=== PATIENT | male | born 1995 | race African-American/Black ===

== ENCOUNTER 2019-11-12 11:31 | Emergency (ER) | payer OTHER ==
[2019-11-12 12:14] LABS: ABS Basophils 0.1 10^3/ul (0-0.2); ABS Monocytes 0.5 10^3/ul (0-0.8); ABS Neutrophils 6.3 10^3/ul (1.5-7.7); Eosinophil % 0.5 %; Hematocrit 39 % (42-52); Hemoglobin 12.7 g/dL (14.0-18.0); Lymphocyte % 12.8 %; Mean Corpuscular HGB Conc 33 g/dL (31-36); Mean Corpuscular Hemoglobin 28 pg (27-31); Mean Corpuscular Volume 86 fL (80-94); Mean Platelet Volume 9.3 fL (7.4-10.4); Platelet Count 201 10^3/uL (150-450); Red Blood Count 4.56 10^6 /uL (4.18-5.48); Red Cell Distribution Width 13 % (10-15); White Blood Count 7.9 10^3/uL (3.5-10.8)
[2019-11-12 12:30] LABS: ALT 20 U/L (7-52); AST 33 U/L (13-39); Albumin 4.2 g/dL (3.2-5.2); Albumin/Globulin Ratio 1.5 (1-3); Alkaline Phosphatase 74 U/L (34-104); Anion Gap 5 mmol/L (2-11); BUN/Creatinine Ratio 15.2 (8-20); Blood Urea Nitrogen 14 mg/dL (6-24); CO2 Carbon Dioxide 27 mmol/L (22-32); Calcium 9.2 mg/dL (8.6-10.3); Chloride 104 mmol/L (101-111); EGFR African American 122.3 (>60); EGFR Non-African American 101.1 (>60); Globulin 2.8 g/dL (2-4); Glucose 85 mg/dL (70-100); Sodium 136 mmol/L (135-145)
[2019-11-12 12:35] LABS: Urine Appearance Cloudy; Urine Bilirubin Negative (Negative); Urine Blood Negative (Negative); Urine Color Yellow; Urine Glucose Negative (Negative); Urine Ketones Negative (Negative); Urine Nitrite Negative (Negative); Urine Protein Negative (Negative); Urine Specific Gravity 1.019 (1.010-1.030); Urine Urobilinogen Negative (Negative)
[2019-11-12] MEDS ORDERED: Iohexol 300* (CONTRAST) 10 ML SDV IV ONE (12:41)
[2019-11-12 12:43] LABS: Acetaminophen < 15 mcg/mL; Alcohol < 10 mg/dL (<10); Salicylate < 2.50 mg/dL (<30)
[2019-11-12 12:55] LABS: TSH (Thyroid Stimulating Horm) 1.42 mcIU/mL (0.34-5.60)
[2019-11-12 13:07] LABS: Urine Benzodiazepine Screen None Detected (None Detect); Urine Opiates Screen None Detected (None Detect)
[2019-11-12 13:08] LABS: HIV 4th Generation Nonreactive (Nonreactive)
--- NOTE | 2019-11-12 13:39 | ED ---
Complex/Multi-Sys Presentation - HPI Summary HPI Summary: Patient is a 24 y/o M presenting to [facility] with complaints of neck pain after he attempted to hang himself in his care home cell [employer]. Shelter security reports that the patient had tied a sweatshirt around a screen. Another individual walked past his cell and saw what the patient was doing. Patient jumped by the time care home staff had entered the room. It is estimated that the patient was hanging for 5-7 seconds before he was gotten down. On triage, pain is rated 4/10. Patient reports that he did not touch the floor. PMHx of depression and anxiety is noted. He reports previous attempt of suicide at age 7. PSHx denied. He reports some tobacco, alcohol, and marijuana usage. Home medications and allergies are reviewed. - History Of Current Complaint Chief Complaint: EDSuicidal Time Seen by Provider: 11/12/19 11:45 Hx Obtained From: Patient Onset/Duration: Still Present Timing: Constant Severity Currently: Moderate Location: Pain At: - neck Associated Signs And Symptoms: Positive: Other - positive - neck pain, SI - Allergies/Home Medications Allergies/Adverse Reactions: Allergies Allergy/AdvReac Type Severity Reaction Status Date / Time No Known Allergies Allergy Verified 11/12/19 11:42 PMH/Surg Hx/FS Hx/Imm Hx Endocrine/Hematology History: Denies: Hx Diabetes Cardiovascular History: Denies: Hx Hypertension History: Denies: Hx Renal Disease Psychiatric History: Reports: Hx Anxiety, Hx Depression Infectious Disease History: No Infectious Disease History: Denies: Traveled Outside the [place] in Last 30 Days - Family History Known Family History: Negative: Diabetes - Social History Alcohol Use: Rare Substance Use Type: Reports: Marijuana Smoking Status (MU): Light Every Day Tobacco Smoker Review of Systems Musculoskeletal: Other - positive - neck pain Psychological: Other - positive - SI All Other Systems Reviewed And Are Negative: Yes Physical Exam - Summary Physical Exam Summary: VITAL SIGNS: Reviewed. GENERAL: Patient is a well-developed and nourished male who is lying comfortable in the stretcher. Patient is not in any acute respiratory distress. HEAD AND FACE: No signs of trauma. No ecchymosis, hematomas or skull depressions. No sinus tenderness. EYES: PERRLA, EOMI x 2, No injected conjunctiva, no nystagmus. EARS: Hearing grossly intact. Ear canals and tympanic membranes are within normal limits. MOUTH: Oropharynx within normal limits. No muffled voice. NECK: Supple, trachea is midline, no adenopathy, no JVD, no carotid bruit, no c- spine tenderness, neck with full ROM. There are no abrasions, hematomas, or signs of choking noted. CHEST: Symmetric, no tenderness at palpation. LUNGS: Clear to auscultation bilaterally. No wheezing or crackles. CVS: Regular rate and rhythm, S1 and S2 present, no murmurs or gallops appreciated. ABDOMEN: Soft, non-tender. No signs of distention. No rebound, no guarding, and no masses palpated. Bowel sounds are normal. EXTREMITIES: FROM in all major joints, no edema, no cyanosis or clubbing. NEURO: Alert and oriented x 3. No acute neurological deficits. Speech is normal and follows commands. SKIN: Dry and warm. Triage Information Reviewed: Yes Vital Signs On Initial Exam: Initial Vitals Pulse BP Pulse Ox 59 129/71 96 11/12/19 11:32 11/12/19 11:32 11/12/19 11:32 Vital Signs Reviewed: Yes Procedures - Sedation Patient Received Moderate/Deep Sedation with Procedure: No Diagnostics - Vital Signs Vital Signs Temp Pulse Resp BP Pulse Ox 11/12/19 11:39 56 97 11/12/19 11:33 97.1 F 56 17 129/71 97 11/12/19 11:32 59 129/71 96 - Laboratory Lab Results: Lab Results 11/12/19 11/12/19 11/12/19 Range/Units 12:06 12:06 12:15 WBC 7.9 (3.5-10.8) 10^3/uL RBC 4.56 (4.18-5.48) 10^6 /uL Hgb 12.7 L (14.0-18.0) g/dL Hct 39 L (42-52) % MCV 86 (80-94) fL MCH 28 (27-31) pg MCHC 33 (31-36) g/dL RDW 13 (10-15) % Plt Count 201 (150-450) 10^3/uL MPV 9.3 (7.4-10.4) fL Neut % (Auto) 80.0 % Lymph % (Auto) 12.8 % Freestone % (Auto) 6.1 % Eos % (Auto) 0.5 % Baso % (Auto) 0.6 % Absolute Neuts (auto) 6.3 (1.5-7.7) 10^3/ul Absolute Lymphs (auto) 1.0 (1.0-4.8) 10^3/ul Absolute Monos (auto) 0.5 (0-0.8) 10^3/ul Absolute Eos (auto) 0.0 (0-0.6) 10^3/ul Absolute Basos (auto) 0.1 (0-0.2) 10^3/ul Absolute Nucleated RBC 0.0 10^3/ul Nucleated RBC % 0.0 Sodium 136 (135-145) mmol/L Potassium 4.0 (3.5-5.0) mmol/L Chloride 104 (101-111) mmol/L Carbon Dioxide 27 (22-32) mmol/L Anion Gap 5 (2-11) mmol/L BUN 14 (6-24) mg/dL Creatinine 0.92 (0.67-1.17) mg/dL Est GFR ( Amer) 122.3 (>60) Est GFR (Non-Af Amer) 101.1 (>60) BUN/Creatinine Ratio 15.2 (8-20) Glucose 85 (70-100) mg/dL Calcium 9.2 (8.6-10.3) mg/dL Total Bilirubin 0.60 (0.2-1.0) mg/dL AST 33 (13-39) U/L ALT 20 (7-52) U/L Alkaline Phosphatase 74 (34-104) U/L Total Protein 7.0 (6.4-8.9) g/dL Albumin 4.2 (3.2-5.2) g/dL Globulin 2.8 (2-4) g/dL Albumin/Globulin Ratio 1.5 (1-3) TSH 1.42 (0.34-5.60) mcIU/mL Urine Color Yellow Urine Appearance Cloudy Urine pH 7.0 (5-9) Ur Specific [place] 1.019 (1.010-1.030) Urine Protein Negative (Negative) Urine Ketones Negative (Negative) Urine Blood Negative (Negative) Urine Nitrate Negative (Negative) Urine Bilirubin Negative (Negative) Urine Urobilinogen Negative (Negative) Ur Leukocyte Esterase Negative (Negative) Urine Glucose Negative (Negative) Salicylates < 2.50 (<30) mg/dL Urine Opiates Screen (None Detect) Acetaminophen < 15 mcg/mL Ur Barbiturates Screen (None Detect) Ur Phencyclidine Scrn (None Detect) Ur Amphetamines Screen (None Detect) U Benzodiazepines Scrn (None Detect) Urine Cocaine Screen (None Detect) U Cannabinoids Screen (None Detect) Serum Alcohol < 10 (<10) mg/dL 11/12/19 Range/Units 12:15 WBC (3.5-10.8) 10^3/uL RBC (4.18-5.48) 10^6 /uL Hgb (14.0-18.0) g/dL Hct (42-52) % MCV (80-94) fL MCH (27-31) pg MCHC (31-36) g/dL RDW (10-15) % Plt Count (150-450) 10^3/uL MPV (7.4-10.4) fL Neut % (Auto) % Lymph % (Auto) % Freestone % (Auto) % Eos % (Auto) % Baso % (Auto) % Absolute Neuts (auto) (1.5-7.7) 10^3/ul Absolute Lymphs (auto) (1.0-4.8) 10^3/ul Absolute Monos (auto) (0-0.8) 10^3/ul Absolute Eos (auto) (0-0.6) 10^3/ul Absolute Basos (auto) (0-0.2) 10^3/ul Absolute Nucleated RBC 10^3/ul Nucleated RBC % Sodium (135-145) mmol/L Potassium (3.5-5.0) mmol/L Chloride (101-111) mmol/L Carbon Dioxide (22-32) mmol/L Anion Gap (2-11) mmol/L BUN (6-24) mg/dL Creatinine (0.67-1.17) mg/dL Est GFR ( Amer) (>60) Est GFR (Non-Af Amer) (>60) BUN/Creatinine Ratio (8-20) Glucose (70-100) mg/dL Calcium (8.6-10.3) mg/dL Total Bilirubin (0.2-1.0) mg/dL AST (13-39) U/L ALT (7-52) U/L Alkaline Phosphatase (34-104) U/L Total Protein (6.4-8.9) g/dL Albumin (3.2-5.2) g/dL Globulin (2-4) g/dL Albumin/Globulin Ratio (1-3) TSH (0.34-5.60) mcIU/mL Urine Color Urine Appearance Urine pH (5-9) Ur Specific [place] (1.010-1.030) Urine Protein (Negative) Urine Ketones (Negative) Urine Blood (Negative) Urine Nitrate (Negative) Urine Bilirubin (Negative) Urine Urobilinogen (Negative) Ur Leukocyte Esterase (Negative) Urine Glucose (Negative) Salicylates (<30) mg/dL Urine Opiates Screen None detected (None Detect) Acetaminophen mcg/mL Ur Barbiturates Screen None detected (None Detect) Ur Phencyclidine Scrn None detected (None Detect) Ur Amphetamines Screen None detected (None Detect) U Benzodiazepines Scrn None detected (None Detect) Urine Cocaine Screen None detected (None Detect) U Cannabinoids Screen None detected (None Detect) Serum Alcohol (<10) mg/dL Result Diagrams: 11/12/19 12:06 11/12/19 12:06 Lab Statement: Any lab studies that have been ordered have been reviewed, and results considered in the medical decision making process. - CT CERVICAL SPINE CT CT Interpretation Completed By: Radiologist Summary of CT Findings: IMPRESSION: NO ACUTE OSSEOUS INJURY TO THE CERVICAL SPINE. THIS REPORT WAS REVIEWED BY ED PHYSICIAN. NECK CT CT Interpretation Completed By: Radiologist Summary of CT Findings: IMPRESSION: NO ACUTE CT PATHOLOGY OF THE NECK. THIS REPORT WAS REVIEWED BY ED PHYSICIAN. Re-Evaluation - Re-Evaluation First Eval Re-Evaluation Time: 13:36 Comment: Patient is medically cleared for MHE, which the patient will receive at his care home facility. Complex Multi-Symp Course/Dx Assessment/Plan: Patient is a 24 y/o M presenting to [facility] with complaints of neck pain after he attempted to hang himself in his care home cell [employer]. Shelter security reports that the patient had tied a sweatshirt around a screen. Another individual walked past his cell and saw what the patient was doing. Patient jumped by the time care home staff had entered the room. It is estimated that the patient was hanging for 5-7 seconds before he was gotten down. On triage, pain is rated 4/10. Patient reports that he did not touch the floor. PMHx of depression and anxiety is noted. He reports previous attempt of suicide at age 7. PSHx denied. He reports some tobacco, alcohol, and marijuana usage. Home medications and allergies are reviewed. In the ED course the patient was placed in a tank insulator rubber, IV access was obtained. Blood test w/o a significant abnormality except for is slight normocytic normochromic anemia. C- spine CT impression no acute pathology. Soft tissue CT of the neck impression: No acute pathology. At this point the patient is medically clear. [facility] to [facility] where [facility] health evaluation will be done for the patient. At this time the patient is hemodynamically stable alert and oriented 3. - Diagnoses Differential Diagnoses/HQI/PQRI: Other - Depression, Suicidal ideation, Anxiety Provider Diagnoses: Neck pain Discharge ED - Sign-Out/Discharge Documenting (check all that apply): Patient Departure - discharge - Discharge Plan Condition: Stable Disposition: LAW ENFORCEMENT/COURT Patient Education Materials: Neck Pain (ED) Referrals: Sue Washburn [Primary Care Provider] - 3 Days Additional Instructions: PLEASE RETURN TO ED FOR ANY NEW OR WORSENING SYMPTOMS. PLEASE FOLLOW UP WITH YOUR PRIMARY CARE PHYSICIAN. - Billing Disposition and Condition Condition: STABLE Disposition: Law Enforcement/Court - Attestation Statements Document Initiated by Karina: Yes Documenting Scribe: ROLAND CURRY Provider For Whom Karina is Documenting (Include Credential): GLORIA LUO MD Scribe Attestation: ROLAND Day, scribed for GLORIA LUO MD on 11/12/19 at 1715. Scribe Documentation Reviewed: Yes Provider Attestation: The documentation as recorded by the ROLAND ponce accurately reflects the service I personally performed and the decisions made by me, GLORIA LUO MD Status of Scribe Document: Viewed
[2019-11-12 13:52] VITALS: BP 144/72
== END 2019-11-12 13:51 ==
LOC: EDBD → ED 11:31
DX: M54.2 Cervicalgia (principal); X83.8XXA Intentional self-harm by other specified means, initial encounter; Y92.143 Cell of prison as the place of occurrence of the external cause; F17.200 Nicotine dependence, unspecified, uncomplicated
CPT/HCPCS: 36415; 70491; 72125; 80053; 80307; 80320; 80329; 81003; 84443; 85025; 87389; 99284; G0480; Q9967